=== PATIENT | female | born 1995 | race Caucasian/White ===

== ENCOUNTER 2016-12-07 22:14 | Emergency (ER) | payer BC ==
[2016-12-07 22:20] VITALS: BP 136/77; PULSE 89; RESP 18; TEMP 98.7
--- NOTE | 2016-12-07 22:31 | ED ---
General Adult HPI - General Chief complaint: Abdominal Pain Stated complaint: Poss UTI Time Seen by Provider: 12/07/16 22:25 Source: patient Mode of arrival: ambulatory Limitations: no limitations - History of Present Illness Initial comments: This is a 21-year-old female who presents emergency department for dysuria, suprapubic burning persisting urinary tract infection. The patient states that symptoms started approximately 1-1/2 weeks ago. She started Augmentin at that time and completed this however had persistent symptoms. She went to her family doctor this morning who prescribed her Macrobid however she found out later that she was ALLERGIC to this. She tried calling her family doctor back however they were unable to prescribe her different medications so she presents here. She denies any fevers or chills. No flank pain. No vaginal bleeding or discharge. No complains. - Related Data Home Medications Medication Instructions Recorded Confirmed Phenazopyridine [Pyridium] 100 mg PO TID 12/07/16 12/07/16 Previous Rx's Medication Instructions Recorded Sulfamethox-Tmp 800-160Mg [Bactrim 1 tab PO Q12HR #13 tab 12/07/16 DS 800-160 mg] Allergies Allergy/AdvReac Type Severity Reaction Status Date / Time nitrofurantoin Allergy Mild Rash/Hives Verified 12/07/16 22:43 Review of Systems ROS Statement: Those systems with pertinent positive or pertinent negative responses have been documented in the HPI. ROS Other: All systems not noted in ROS Statement are negative. Past Medical History Past Medical History: No Reported History History of Any Multi-Drug Resistant Organisms: None Reported Past Surgical History: No Surgical Hx Reported Past Psychological History: No Psychological Hx Reported Smoking Status: Never smoker Past Alcohol Use History: Occasional Past Drug Use History: None Reported General Exam Limitations: no limitations Course Vital Signs 12/07/16 22:18 Temperature 98.7 F Pulse Rate 89 Respiratory 18 Rate Blood Pressure 136/77 O2 Sat by Pulse 99 Oximetry Medical Decision Making - Medical Decision Making Is a 21-year-old female who presents emergency department for persistent dysuria and suprapubic burning. Urine was positive for UTI. I'm going to start her on Bactrim twice a day for the next 7 days. She can follow up with her regular doctor for further evaluation. Cultures are pending. All questions were answered. - Lab Data Lab Results 12/07/16 12/07/16 Range/Units 22:30 22:40 Urine Color Dark Brown Urine Appearance Clear (Clear) Urine pH 5.5 (5.0-8.0) Ur Specific [place] 1.010 (1.001-1.035) Urine Protein Trace H (Negative) Urine Glucose (UA) Negative (Negative) Urine Ketones Negative (Negative) Urine Blood Small H (Negative) Urine Nitrate Positive H (Negative) Urine Bilirubin 1+ H (Negative) Urine Urobilinogen 2.0 (<2.0) mg/dL Ur Leukocyte Esterase Trace H (Negative) Urine RBC 7 H (0-5) /hpf Urine WBC 14 H (0-5) /hpf Ur Squamous Epith Cells 3 (0-4) /hpf Urine Bacteria Rare H (None) /hpf Urine Mucus Rare H (None) /hpf Urine HCG, Qual Not Detected (Not Detectd) Disposition Clinical Impression: UTI (urinary tract infection) Disposition: HOME SELF-CARE Condition: Stable Instructions: Urinary Tract Infection in Women (ED) Prescriptions: Sulfamethox-Tmp 800-160Mg [Bactrim DS 800-160 mg] 1 tab PO Q12HR #13 tab Referrals: Celso Cintron MD [Primary Care Provider] - 1-2 days
[2016-12-07 22:44] LABS: Appearance,Urine Clear (Clear); Bacteria,Urine Rare /hpf; Bilirubin,Urine 1+ (Negative); Glucose,Urine (UA) Negative (Negative); Ketones,Urine Negative (Negative); Leukocyte Esterase,Urine Trace (Negative); Mucus,Urine Rare /hpf; Nitrite,Urine Positive (Negative); PH, Urine 5.5 (5.0-8.0); Particle Count 1423; Protein,Urine Trace (Negative); RBC,Urine 7 /hpf (0-5); Squamous Epithelial Cell,Urine 3 /hpf (0-4); UA Billing (MACRO vs. MICRO) MICRO; WBC,Urine 14 /hpf (0-5)
[2016-12-07] MEDS ORDERED: SULFAMETHOX-TMP 800-160MG 1 EACH TAB PO STA (22:53)
== END 2016-12-07 23:07 | disposition home or self-care (01) ==
LOC: EC 22:14
DX: N39.0 Urinary tract infection, site not specified (principal); Z91.09 Other allergy status, other than to drugs and biological substances
CPT/HCPCS: 81001; 81025; 87086; 99284